=== PATIENT | male | born 1960 | race Asian ===

== ENCOUNTER 2018-12-19 10:28 | Emergency (ER) | payer OTHER ==
[~2018-12-19] VITALS: Ht 157.5 cm; Wt 68.9 kg
[~2018-12-19 10:28] MED LIST: FURO-109 PO
[2018-12-19 10:42] VITALS: PULSE 92; RESP 24; Ht 157.5 cm; Wt 68.9 kg
[2018-12-19] MEDS ORDERED: FUROSEMIDE 20 MG TAB PO ONE (14:00)
[2018-12-19 14:05] VITALS: BP 193/101
== END 2018-12-19 14:06 | disposition home or self-care (01) ==
LOC: FTE 10:28
DX: I50.9 Heart failure, unspecified (principal); F17.210 Nicotine dependence, cigarettes, uncomplicated
CPT/HCPCS: 36415; 71045; 80053; 83880; 84484; 85025; 93005; Z7502; Z7610